=== PATIENT | female | born 1985 | race Caucasian/White ===

== ENCOUNTER 2016-04-02 08:12 | Emergency (ER) | payer OTHER, MEDICARE ==
[~2016-04-02] VITALS: Ht 160 cm; Wt 61.2 kg
[~2016-04-02 08:12] MED LIST: AUGMENTIN 875 M1 TAB PO; FLEXERIL10 MG PO; FLONASE120 SPRAY/ NS; HYDROCODONE/ACE1 TA1 PO; NASONEX0.05 MG/Ac NAS; PREDNISONE10 MG PO; TESSALON PERLE100 MG PO; ZITHROMAX Z PA250 MG PO
--- NOTE | 2016-04-02 08:24 | ED SYNCOPE COMPLAINT ---
History of Present Illness General Chief Complaint: Syncope and Near-Syncope Stated Complaint: SYNCOPE Source: patient, old records, EMS Exam Limitations: no limitations Allergies Coded Allergies: NO KNOWN ALLERGIES (04/02/16) Reconcile Medications IRON (Unknown Strength) TABLET (Unknown Dose) D ANEMIA (Reported) Triage Note: PT BIBA FROM HOME TO [facility] 3 C/C SYNCOPAL EPISODE X 2 THIS MORNING. PER REPORT PT 1ST SYNCOPAL EPISODE WAS FROM STANDING POSITION, FELL TO FLOOR AND HIT HEAD ON FLOOR SUSTAINING LAC AND HEMATOMA TO BACK OF HEAD. WAS ASSISTED TO CHAIR BY FAMILY AND THEN HAD A 2ND SYNCOPAL EPISODE IN WHICH SHE PUT HER HEAD ON THE TABLE. NO INJURY WITH 2ND EPISODE. PT UNSURE HOW LONG SHE WAS OUT FOR, ?COUPLE MINUTES. FAMILY NOT PRESENT AT THIS TIME BUT B/F WILL BE COMING. PT COMPLAINS ONLY OF PAIN TO BACK OF HEAD. STATES HX OF ANEMIA (TAKES IRON DAILY) AND HAS FREQUENT EPISODES OF DIZZINESS WHICH USUALLY ONLY LASTS COUPLE SECONDS. DENIES ANY HX OF SYNCOPAL EPISODES. PT INITIAL B/P WAS 80/40 FOR EMS WHICH IMPROVED WITH IVF TO 108/40. PT REC'D 200 MLS N/S POLYMER CHEMIST VIA PRE[facility] IV SITE #18 RAC. Triage Nurses Notes Reviewed? yes : No Patient currently breastfeeds: No HPI: Patient is a 30-year-old female brought in by ambulance for evaluation of syncope. Patient reports that she was standing this morning when she fell severely lightheaded and had a syncopal episode. Episode lasted for a couple of minutes. Patient struck the back of her head against the floor. Patient sustained a laceration and hematoma to her posterior scalp when this happened. Patient reports that she regained consciousness, was assisted to the table when she loss consciousness again for a brief period. Patient currently feeling generalized weakness and headache. Headache is currently 8 out of 10, worsens with palpation. Yesterday patient had a "cold", was in bed all day, was drinking fluids but decreased from her baseline. Last menstrual period was the beginning of this month, patient has prolonged and abnormal menstrual periods at her baseline, reports that she has vaginal bleeding on most days throughout the month. Patient was seen by her library clerk talking books and is likely to start control pills to aid with the bleeding, but has not started yet.. Patient denies chest pain, dyspnea, palpitations, family history of cardiac or neurologic abnormalities. (DIMITRI VELASQUEZ) Vital Signs & Intake/Output Vital Signs & Intake/Output Vital Signs Date Time Temp Pulse Resp B/P Pulse O2 O2 Flow FiO2 Ox Delivery Rate 04/02 1428 98.3 72 20 107/50 99 Room Air 04/02 1408 98.6 77 18 109/51 100 Room Air 04/02 1221 97.8 78 20 108/57 98 Room Air 04/02 1145 97.5 04/02 1132 99.0 69 20 108/59 99 Room Air 04/02 0833 95 Room Air Room Air 04/02 0817 97.2 77 20 103/59 100 Room Air Past History Travel History Traveled to [place] past 21 day No Medical History Any Pertinent Medical History? see below for history Neurological: NONE EENT: NONE Cardiovascular: NONE Respiratory: NONE Gastrointestinal: NONE Hepatic: NONE Renal: NONE Musculoskeletal: NONE Psychiatric: NONE Endocrine: NONE Blood Disorders: anemia Cancer(s): NONE CROP ROLLER/Reproductive: NONE Surgical History Surgical History: non-contributory Psychosocial History What is your primary language [place] Tobacco Use: Current Daily Use Daily Tobacco Use Amount/Type: => 5 Cigarettes daily ETOH Use: occasional use Illicit Drug Use: denies illicit drug use Family History Hx Contributory? No (DIMITRI VELASQUEZ) Review of Systems Review of Systems Constitutional: Reports: malaise, weakness. Denies: fever. EENTM: Reports: no symptoms. Respiratory: Denies: cough, short of breath. Cardiovascular: Reports: syncope. Denies: chest pain, palpitations. GI: Denies: abdominal pain, diarrhea, vomiting. Genitourinary: Reports: no symptoms. Musculoskeletal: Reports: no symptoms. Skin: Reports: no symptoms. Neurological/Psychological: Reports: headache. Denies: confusion, numbness. (DIMITRI VELASQUEZ) Physical Exam Physical Exam General Appearance: alert, awake Head: LEFT POSTERIOR SCALP HEMATOMA AND TENDERNESS, 4 CM POSTERIOR SCALP LACERATION Eyes: Bilateral: normal appearance, PERRL, EOMI. Ears, Nose, Throat: normal pharynx, normal ENT inspection, hearing grossly normal Neck: normal inspection, supple, full range of motion, no midline tenderness, NO PARASPINAL TENDERNESS Respiratory: normal breath sounds, chest non-tender, no respiratory distress, lungs clear Cardiovascular: regular rate/rhythm (NO MURMUR) Gastrointestinal: soft, non-tender Extremities: normal inspection, normal capillary refill, normal range of motion, no edema Psychiatric: awake, alert, oriented x 3 Cranial Nerves: normal hearing, normal speech, PERRL Coordination/Gait: normal gait Motor/Sensory: no motor/sensory deficits Skin: intact, normal color, warm/dry Core Measures ACS in differential dx? Yes ASA ordered for poss ACS? No-ACS ruled out CVA/TIA Diagnosis: No Severe Sepsis Present: No Septic Shock Present: No (JOSE PALOMO,DIMITRI) Progress Differential Diagnosis: AMI, aortic dissection, drug induced syncope, orthostatic syncope, seizure, sick sinus syndrome, vasodepressor syncope, ventricular tach/fib, anemia, intracranial bleed, skull fracture Diagnostic Imaging: Viewed by Me: CT Scan. Discussed w/RAD: CT Scan. Radiology Impression: PATIENT: KASSY PAYNE PRESENT AGE: 30 PATIENT ACCOUNT NO: [id number] : 84 LOCATION: [facility] [place] ORDERING PHYSICIAN: DIMITRI PALOMO SERVICE DATE: 04/02/16 EXAM TYPE: CAT - CT HEAD WO IV CONTRAST EXAMINATION: CT HEAD WITHOUT CONTRAST CLINICAL INFORMATION: Syncope after head injury. Evaluate for skull fracture and bleed. COMPARISON: None TECHNIQUE: Contiguous axial imaging was performed from the skull base to vertex without intravenous administration of contrast. DLP: 529 mGy-cm FINDINGS: The brain parenchyma has normal attenuation with well- preserved arthur-white matter differentiation. No evidence of cerebral edema, hemorrhage, extra-axial fluid collection, focal mass effect or midline shift. The ventricles, sulci and basilar cisterns are unremarkable; no hydrocephalus. The calvarium is intact and the mastoid air cells and middle ear cavities are clear. Incidentally noted is mucosal thickening of left ethmoid air cells and mucoperiosteal thickening of the partially visualized left maxillary sinus -- suggestive of chronic sinusitis. The visualized portions of the orbits, globes and temporomandibular joints are unremarkable. IMPRESSION: No acute intracranial pathology. DICTATED BY: AMMY GREENFIELD MD DATE/TIME DICTATED:04/02/161019 OFFICE TECHNOLOGY INSTRUCTOR:LUPIS DATE/TIME TRANSCRIBED:04/02/161019 CONFIDENTIAL, DO NOT COPY WITHOUT APPROPRIATE AUTHORIZATION. <Electronically signed in Other Vendor System> SIGNED BY: AMMY GREENFIELD MD 04/02/16 1027 (DIMITRI VELASQUEZ) Plan of Care: Orders Procedure Date/time Status BLOOD PRODUCT PICKUP 04/02 1141 Active TYPE & SCREEN (NOT X-MATCH) 04/02 1024 Active LEUKOCYTE POOR (PACKED CELLS) 04/02 1014 Active MISTAKE 04/02 833 Active Telemetry/Building Maintenance Technician 04/02 833 Active TROPONIN LEVEL 04/02 833 Complete HUMAN BETA HCG SCREEN 04/02 833 Complete COMPREHENSIVE METABOLIC PANEL 04/02 833 Complete CBC WITHOUT DIFFERENTIAL 04/02 833 Complete EKG 04/02 833 Active Laboratory Tests 04/02/16 0905: Anion Gap 6, Estimated GFR > 60, BUN/Creatinine Ratio 14.3, Glucose 88, Calcium 8.1 L, Total Bilirubin 0.3, AST 22, ALT 29, Alkaline Phosphatase 73, Troponin I < 0.01, Total Protein 5.9 L, Albumin 3.1 L, Globulin 2.8, Albumin/Globulin Ratio 1.1, Total Beta HCG NEGATIVE, CBC w Diff MAN DIFF ORDERED, RBC 3.29 L, MCV 71.2 L, MCH 22.1 L, RDW 17.9 H, MPV 9.3, Gran % 76.7 H, Lymphocytes % 11.1 L, Monocytes % 12.1 H, Eosinophils % 0.1, Basophils % 0 L, Absolute Granulocytes 3.8, Segmented Neutrophils 76 H, Band Neutrophils 5, Absolute Lymphocytes 0.5 L, Lymphocytes 10 L, Monocytes 9, Absolute Monocytes 0.6, Absolute Eosinophils 0, Absolute Basophils 0, Platelet Estimate ADEQUATE, Hypochromic-Microcytic 3+, Poikilocytosis 2+, Anisocytosis 1+, Microcytic Cells 2+, PUBS MCHC 31.1 L 04/02/2016 9:44:37 AM: Patient reports feeling improvement after 1 L of normal saline. Wound cleansed and irrigated by MST. Awaiting CT scan of the head. Lidocaine/epinephrine/tetracaine placed by nurse to the patient's scalp laceration 04/02/2016 10:10:58 AM: Discussed with Dr. Lang: given patient's syncopal episode and significant drop in hemoglobin since August 2015, recommends transfuse 1 unit PRBC, can discharge and have follow up with him and CROP ROLLER Patient consented to blood transfusion. 04/02/2016 2:32:45 PM: Patient tolerated blood transfusion well. Patient appears stable for discharge with close follow-up with her primary care doctor and her library clerk talking books. (DIMITRI VELASQUEZ) Departure Departure Disposition: HOME OR SELF CARE Condition: Stable Clinical Impression Primary Impression: Syncope Qualifiers: Syncope type: unspecified Qualified Code: R55 - Syncope and collapse Secondary Impressions: Scalp laceration Qualifiers: Encounter type: initial encounter Qualified Code: S01.01XA - Laceration without foreign body of scalp, initial encounter Symptomatic anemia Referrals: IMELDA LANG MD (PCP/Family) Additional Instructions: Take your iron pills daily. Follow-up with your primary doctor and your library clerk talking books within one week for further evaluation. Call this afternoon for appointment. Return to emergency department in 7 days for staple removal. Return immediately if any chest pain, difficulty breathing, further feeling of passing out, or worsening of symptoms. Departure Forms: Customer Survey General Discharge Information (DIMITRI VELASQUEZ) PA/FIELD ACCOUNT DIRECTOR Co-Sign Statement Statement: ED Attending supervision documentation- [] I saw and evaluated the patient. I have also reviewed all the pertinent lab results and diagnostic results. I agree with the findings and the plan of care as documented in the PA's/FIELD ACCOUNT DIRECTOR's documentation. [X] I have reviewed the ED Record and agree with the PA's/FIELD ACCOUNT DIRECTOR's documentation. [] Additions or exceptions (if any) to the PAs/FIELD ACCOUNT DIRECTOR's note and plan are summarized below: [] (MOE VALDES,JENA Astorga) Procedures Laceration/Wound Repair Laceration/Wound Repair: Wound Location: head Wound's Depth, Shape: subcutaneous Wound Length (cm): 4 Wound Explored: clean Anesthesia: L.E.T. then 3 ml of 1% lidocaine Volume Anesthetic (ccs): 3 Suture Size/Type: chantell Number of Sutures: 4 (DIMITRI VELASQUEZ)
[2016-04-02] MEDS ORDERED: IRON18 MG (08:30)
[2016-04-02 09:21] LABS: ABSOLUTE BASOPHIL COUNT 0 /CUMM (0.0-0.2); ABSOLUTE EOSINOPHIL COUNT 0 /CUMM (0.0-0.7); ABSOLUTE LYMPH COUNT 0.5 /CUMM (1.2-3.4); WHITE BLOOD CELL COUNT 4.9 /CUMM (4.8-10.8)
[2016-04-02 09:33] LABS: ABSOLUTE GRANULOCYTE CT 3.8 /CUMM (1.4-6.5); ABSOLUTE MONOCYTE COUNT 0.6 /CUMM (0.10-0.60); BASOPHIL % 0 % (0.0-2.0); EOSINOPHIL % 0.1 % (0-5); GRANULOCYTE % 76.7 % (42.2-75.2); HEMATOCRIT 23.5 % (37-47); MEAN CORPUSCULAR HGB 22.1 PG (27.0-31.0); MEAN CORPUSCULAR HGB CONC 31.1 G/DL (33.0-37.0); MEAN CORPUSCULAR VOLUME 71.2 FL (81.0-99.0); MEAN PLATELET VOLUME 9.3 FL (7.4-10.4); PLATELET COUNT 235 /CUMM (130-400); RBC DISTRIBUTION WIDTH 17.9 % (11.5-14.5); RED BLOOD CELL CT 3.29 /CUMM (4.20-5.40)
--- NOTE | 2016-04-02 10:27 | CT SCAN REPORT ---
EXAMINATION: CT HEAD WITHOUT CONTRAST CLINICAL INFORMATION: Syncope after head injury. Evaluate for skull fracture and bleed. COMPARISON: None TECHNIQUE: Contiguous axial imaging was performed from the skull base to vertex without intravenous administration of contrast. DLP: 529 mGy-cm FINDINGS: The brain parenchyma has normal attenuation with well-preserved arthur-white matter differentiation. No evidence of cerebral edema, hemorrhage, extra-axial fluid collection, focal mass effect or midline shift. The ventricles, sulci and basilar cisterns are unremarkable; no hydrocephalus. The calvarium is intact and the mastoid air cells and middle ear cavities are clear. Incidentally noted is mucosal thickening of left ethmoid air cells and mucoperiosteal thickening of the partially visualized left maxillary sinus -- suggestive of chronic sinusitis. The visualized portions of the orbits, globes and temporomandibular joints are unremarkable. IMPRESSION: No acute intracranial pathology.
[2016-04-02 14:28] VITALS: BP 107/50
== END 2016-04-02 14:32 ==
LOC: ERH 08:12
PROVIDERS: Physician Assistant
DX: S01.02XA Laceration with foreign body of scalp, initial encounter (principal); R55 Syncope and collapse; D64.9 Anemia, unspecified; W19.XXXA Unspecified fall, initial encounter
CPT/HCPCS: 86920; 93005; 93010; 99291; P9016

== ENCOUNTER 2016-06-27 18:48 | Emergency (ER) | payer OTHER, MEDICARE ==
[~2016-06-27] VITALS: Ht 162.6 cm; Wt 60.8 kg
[~2016-06-27 18:48] MED LIST changes: +IRON18 MG
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
[2016-06-27] MEDS ORDERED: IBUPROFEN600 M1 PO (20:30)
[2016-06-27] MEDS ORDERED: SLOW FE142 MG PO (20:31)
[2016-06-27] MEDS ORDERED: MEDROXYPRO150 MG/11 IM (20:31)
[2016-06-27 20:36] LABS: ABSOLUTE BASOPHIL COUNT 0 /CUMM (0.0-0.2); ABSOLUTE EOSINOPHIL COUNT 0.2 /CUMM (0.0-0.7); ABSOLUTE GRANULOCYTE CT 4.1 /CUMM (1.4-6.5); ABSOLUTE LYMPH COUNT 1.4 /CUMM (1.2-3.4); ABSOLUTE MONOCYTE COUNT 0.8 /CUMM (0.10-0.60); BASOPHIL % 0.5 % (0.0-2.0); EOSINOPHIL % 3.5 % (0-5); GRANULOCYTE % 62.6 % (42.2-75.2); HEMATOCRIT 27.3 % (37-47); MEAN CORPUSCULAR HGB 25.7 PG (27.0-31.0); MEAN CORPUSCULAR HGB CONC 32.3 G/DL (33.0-37.0); MEAN CORPUSCULAR VOLUME 79.7 FL (81.0-99.0); MEAN PLATELET VOLUME 9.5 FL (7.4-10.4); PLATELET COUNT 239 /CUMM (130-400); RBC DISTRIBUTION WIDTH 17.5 % (11.5-14.5); RED BLOOD CELL CT 3.43 /CUMM (4.20-5.40); WHITE BLOOD CELL COUNT 6.5 /CUMM (4.8-10.8)
[2016-06-27 22:17] VITALS: BP 122/78
== END 2016-06-27 22:17 ==
LOC: ERH 18:48
PROVIDERS: Emergency Medicine
DX: N93.9 Abnormal uterine and vaginal bleeding, unspecified (principal)
CPT/HCPCS: 81001